=== PATIENT | female | born 1995 ===

== ENCOUNTER 2018-06-03 11:59 | Emergency (ER) | payer OTHER ==
[2018-06-03 12:24] VITALS: BP 120/81; PULSE 91; RESP 18; TEMP 98.5; O2SAT 100
--- NOTE | 2018-06-03 12:58 | ED PDOC ---
HPI: Abdomen Time Seen by Provider: 06/03/18 12:27 Chief Complaint (Nursing): Abdominal Pain Chief Complaint (Provider): abdominal pain and vaginal spotting History Per: Patient History/Exam Limitations: no limitations Onset/Duration Of Symptoms: Days (x2) Current Symptoms Are (Timing): Still Present Location Of Pain/Discomfort: Other (lower) Associated Symptoms: Urinary Symptoms (dysuria and vaginal spotting). denies: Fever, Chills Additional Complaint(s): Marylou Davey is a 22 year old female, with a past medical history of UTIs, who presents to the emergency department complaining of lower crampy abdominal pain and vaginal spotting associated with dysuria onset for x2 days. Patient is approximately x12 weeks . She denies any fever, chills or other medical complaints. PMD: Marysol Hwang Past Medical History Reviewed: Historical Data, Nursing Documentation, Vital Signs Vital Signs: Last Vital Signs Temp 98.5 F 06/03/18 12:20 Pulse 91 H 06/03/18 12:20 Resp 18 06/03/18 12:20 BP 120/81 06/03/18 12:20 Pulse Ox 100 06/03/18 12:20 - Medical History PMH: No Chronic Diseases - Surgical History Surgical History: No Surg Hx - Family History Family History: States: Unknown Family Hx - Home Medications Home Medications: Ambulatory Orders Medication Instructions Recorded Nitrofurantoin Macrocrystals 100 mg PO BID #20 cap 06/03/18 [Macrobid] - Allergies Allergies/Adverse Reactions: Allergies Allergy/AdvReac Type Severity Reaction Status Date / Time No Known Allergies Allergy Verified 06/03/18 12:20 Review of Systems ROS Statement: Except As Marked, All Systems Reviewed And Found Negative Constitutional: Negative for: Fever, Chills Gastrointestinal: Positive for: Abdominal Pain (lower crampy) Genitourinary Female: Positive for: Dysuria, Vaginal Bleeding (spotting) Physical Exam - Reviewed Nursing Documentation Reviewed: Yes Vital Signs Reviewed: Yes - Physical Exam Appears: Positive for: No Acute Distress Head Exam: Positive for: ATRAUMATIC, NORMAL INSPECTION, NORMOCEPHALIC Skin: Positive for: Normal Color, Warm, Dry Eye Exam: Positive for: Normal appearance, EOMI, PERRL Neck: Positive for: Normal, Painless ROM Cardiovascular/Chest: Positive for: Regular Rate, Rhythm. Negative for: Murmur Respiratory: Positive for: Normal Breath Sounds. Negative for: Respiratory Distress Gastrointestinal/Abdominal: Positive for: Soft, Tenderness (mild suprapubic) Back: Positive for: Normal Inspection. Negative for: L CVA Tenderness, R CVA Tenderness, Vertebral Tenderness Extremity: Positive for: Normal ROM (upper and lower extremities). Negative for: Deformity, Swelling Neurologic/Psych: Positive for: Alert, Oriented - Laboratory Results Result Diagrams: 06/03/18 13:00 06/03/18 13:00 - ECG O2 Sat by Pulse Oximetry: 100 (RA) Pulse Ox Interpretation: Normal Medical Decision Making Medical Decision Making: Time: 12:27 Initial Plan: --Type and screen --Beta-HCG Quantitative --CMP --Urine dipstick --CBC w/ differential --Urine culture --OB Transvaginal [US] --Reevaluation --------- Scribe Attestation: Documented by Ney Wong, acting as a scribe for Cliff Garcia MD. Provider Scribe Attestation: All medical record entries made by the Scribe were at my direction and pers onally dictated by me. I have reviewed the chart and agree that the record accurately reflects my personal performance of the history, physical exam, medical decision making, and the department course for this patient. I have also personally directed, reviewed, and agree with the discharge instructions and disposition. Disposition - Clinical Impression Clinical Impression: Abdominal pain during , UTI (urinary tract infection) - Patient ED Disposition Is Patient to be Admitted: No Counseled Patient/Family Regarding: Studies Performed, Diagnosis, Need For Followup, Rx Given - Disposition [facility]errals[facility] Disposition: Routine/Home Disposition Time: 15:58 Condition: FAIR Prescriptions: Nitrofurantoin Macrocrystals [Macrobid] 100 mg PO BID #20 cap Instructions: Urinary Tract Infections in Adults, Threatened Miscarriage Forms: [employer] (Emirati)
[2018-06-03 13:15] LABS: BASO % 0.2 % (0.0-2.0); EOS % 0.4 % (0.0-4.0); HEMOGLOBIN 10.5 g/dL (12.0-16.0); LYMPH % 15.8 % (20.0-40.0); MEAN CELL VOLUME 84.2 fl (81.0-99.0); MEAN CORPUSCULAR HEMOGLOBIN 27.9 pg (27.0-31.0); MEAN CORPUSCULAR HGB CONC 33.2 g/dL (33.0-37.0); MONO # 0.3 K/uL (0.0-0.8); MONO % 5.3 % (0.0-10.0); NEUT % 78.3 % (50.0-75.0); RBC 3.74 Mil/uL (3.80-5.20); RED CELL DISTRIBUTION WIDTH 15.2 % (11.5-14.5); WHITE BLOOD COUNT 6.4 K/uL (4.8-10.8)
[2018-06-03 13:16] LABS: ALB/GLOB RATIO 1.3 (1.0-2.1); ALBUMIN 3.9 g/dL (3.5-5.0); ALT/SGPT 24 U/L (9-52); AST/SGOT 14 U/L (14-36); BLOOD UREA NITROGEN 3 mg/dl (7-17); CALCIUM 9.3 mg/dL (8.4-10.2); GFR NON-AFRICAN AMERICAN > 60
--- NOTE | 2018-06-03 15:23 | US ---
Date of service: 06/03/2018 PROCEDURE: OB Pelvic Ultrasound HISTORY: vag bleed LMP: A central appears reported 02/25/2018 suggesting 12 week 6 day gestation. COMPARISON: None available. FINDINGS: UTERUS: Gestational sac: Single intrauterine gestation with pole identified. Mean sac diameter 7.0 cm. Mean crown-rump length measurement 7.4 cm corresponds to 13 weeks 4 days sonographic age. Anterosuperior developing placenta without abruption or previa appreciable. Heart rate: 157 bpm. age (Ultrasound estimated): 13 weeks 4 days Lizbeth-gestational hemorrhage: None appreciable at this time. Date of delivery (Ultrasound estimated) : 12/05/2018 Uterus measures 11.7 x 10.4 x 8.5 cm. Normal in size and appearance. anatomic survey not obtained at this time due to emergent presentation and early 2nd trimester dates. CERVIX: Measures 3.7 cm. Trace fluid is identified in the endocervical canal. Internal cervical os not grossly dilated. RIGHT OVARY: Not identified. No suspicious right adnexal findings otherwise. LEFT OVARY: Measures 2.4 x 2.6 x 1.6 cm. No solid mass. Normal flow. FREE FLUID: None. OTHER FINDINGS: None. IMPRESSION: A single viable intrauterine gestation is identified in variable lie with an ultrasonic age of 13 weeks 4 days. cardiac activity 157 beats per minute. Anterosuperior developing placenta without abruption or previa appreciated. Trace fluid noted in the endocervical canal with internal cervical os not grossly dilated. Unremarkable left ovary. Right ovary not identified. Consider follow-up full anatomical survey as clinically warranted.
== END 2018-06-03 16:11 | disposition home or self-care (01) ==
LOC: H.ER 11:59
DX: O26.91 Pregnancy related conditions, unspecified, first trimester (principal); R10.2 Pelvic and perineal pain; O23.41 Unspecified infection of urinary tract in pregnancy, first trimester; Z3A.12 12 weeks gestation of pregnancy

== ENCOUNTER 2018-08-20 19:02 | Emergency (ER) | payer OTHER ==
--- NOTE | 2018-08-20 19:52 | OBDCSUM ---
Datetime: 08/20/2018 19:49 Discharged to, Provider: Home Follow up at, Provider: [facility] [place] Disch Instr Activity: Normal activity Disch Instr Diet: Regular Discharge Instructions, Provider: Routine instructions given Follow up in weeks, Provider: 1w Disch Referrals: None Contraception discussed, Prov: Yes Discharge Comment, Provider: spoke to Dr Charles Discharge Diagnosis Prov Other: S/P fall
--- NOTE | 2018-08-20 20:47 | ED PDOC ---
Lower Extremity Pain/Injury Time Seen by Provider: 08/20/18 20:29 Chief Complaint (Nursing): Lower Extremity Problem/Injury Chief Complaint (Provider): Left Hip Pain History Per: Patient History/Exam Limitations: no limitations Onset/Duration Of Symptoms: Hrs (around 184) Current Symptoms Are (Timing): Still Present Additional Complaint(s): 23 year old female 25 weeks presents to the ED for evaluation of left hip pain. Patient reports that around 1845 tonight she was walking in a parking lot to [employer] when she slipped on ice and fell landing on her left hip. She reports localized pain to the area since, but has not taken any medications prior to arrival. Initially, she came to the hospital and was cleared by OB, and is now seeking hip evaluation. Otherwise denies prior hip injury / surgery, head injury, and loss of consciousness. No other complaints. LNMP: March 05, 2018 PMD: was [place], but she moved so no active PMD in area Past Medical History Reviewed: Historical Data, Nursing Documentation, Vital Signs Vital Signs: Last Vital Signs Temp 98.1 F 08/20/18 20:20 Pulse 98 H 08/20/18 20:20 Resp 16 08/20/18 20:20 BP 104/64 08/20/18 20:20 Pulse Ox 98 08/20/18 20:20 - Medical History PMH: No Chronic Diseases - Surgical History Surgical History: Tonsillectomy - Family History Family History: States: Unknown Family Hx - Social History Current smoker - smoking cessation education provided: No Alcohol: None Drugs: Denies - Home Medications Home Medications: Ambulatory Orders Medication Instructions Recorded Nitrofurantoin Macrocrystals 100 mg PO BID #20 cap 06/03/18 [Macrobid] Acetaminophen [Acetaminophen 8 650 mg PO Q8 PRN #21 tablet.er 08/20/18 Hour] - Allergies Allergies/Adverse Reactions: Allergies Allergy/AdvReac Type Severity Reaction Status Date / Time No Known Allergies Allergy Verified 06/03/18 12:20 Review of Systems ROS Statement: Except As Marked, All Systems Reviewed And Found Negative Musculoskeletal: Positive for: Leg Pain (left hip) Neurological: Negative for: Other (loss of consciousness) Physical Exam - Reviewed Nursing Documentation Reviewed: Yes Vital Signs Reviewed: Yes - Physical Exam Comments: GENERAL APPEARANCE: Patient is awake, alert, oriented x 3, in no acute distress. SKIN: Warm, dry; (-) cyanosis. EYES: (-) conjunctival pallor. ENMT: Mucous membranes moist. Airway patent, (-) stridor. NECK: Supple, FROM (-) midline tenderness, (-) stiffness, (-) lymphadenopathy. CHEST AND RESPIRATORY: (-) rales, (-) rhonchi, (-) wheezes; breath sounds equal bilaterally. Respirations nonlabored. HEART AND CARDIOVASCULAR: (-) irregularity ABDOMEN AND GI: Soft with gravid uterus; (-) tenderness; (-) palpable mass (-) pelvic instability BACK: (-) midline tenderness, (-) deformity. LEFT LOWER EXTREMITY: (+) tenderness to lateral left hip and lateral proximal left thigh, (-) edema (-) ecchymosis, (-) erythema, (-) break in skin integrity. Full ROM bilateral hips. Remainder of LLE: nontender with full ROM. Sensation intact throughout. NEURO AND PSYCH: Mental status as above. Gait: limping. Speech: clear. (-) facial asymmetry - ECG O2 Sat by Pulse Oximetry: 98 (RA) Pulse Ox Interpretation: Normal Medical Decision Making Medical Decision Making: Initial Impression: acute leg pain s/p fall, contusion Time: 2029 Initial Plan: --Tylenol 650mg PO --Re-evaluation 2100 On re-evaluation, patient reports improvement of symptoms. On exam, patient remains AAOx3, in no acute distress. Vitals stable. Lab/Diagnostic results d/w the patient in great detail. Diagnosis of acute leg/hip pain, contusion s/p fall on ice d/w the patient. Based on history, exam and diagnostic results, plan will be for outpatient follow up with PMD. Patient instructed to follow-up with pmd / referral provided / the clinic in 1- 2 days without fail. Advised to take medication as prescribed. Return to the emergency room at any time for any new or worsening symptoms. Patient states she fully agrees with and understands discharge instructions. States that she agrees with the plan and disposition. Verbalized and repeated discharge instructions and plan. I have given the patient opportunity to ask any additional questions. Scribe Attestation: Documented by Rhonda Rivera, acting as a scribe for Marium Hunter PA-C. Provider Scribe Attestation: All medical record entries made by the Scribe were at my direction and personally dictated by me. I have reviewed the chart and agree that the record accurately reflects my personal performance of the history, physical exam, medical decision making, and the department course for this patient. I have also personally directed, reviewed, and agree with the discharge instructions and disposition. Disposition - Clinical Impression Clinical Impression: Acute pain of left hip, Contusion of leg, left, Fall from slipping on ice - Patient ED Disposition Is Patient to be Admitted: No Counseled Patient/Family Regarding: Studies Performed, Diagnosis, Need For Follo wup, Rx Given - Disposition Referrals: primary, doctor [Other] Dwaine Burk DO [Primary Care Provider] - Disposition: Routine/Home Disposition Time: 21:00 Condition: STABLE Additional Instructions: The emergency medical care you received today was directed at your acute symptoms. If you were prescribed any medication, please fill it and take as directed. It may take several days for your symptoms to resolve. Return to the Emergency Department if your symptoms worsen, do not improve, or if you have any other problems. Please contact your doctor in 2 days for re-evaluation and follow up / or call one of the physicians/clinics you have been referred to that are listed on the Patient Visit Information form that is included in your discharge packet. Bring any paperwork you were given at discharge with you along with any medications you are taking to your follow up visit. Our treatment cannot replace ongoing medical care by a primary care provider (PCP) outside of the emergency department. Prescriptions: Acetaminophen [Acetaminophen 8 Hour] 650 mg PO Q8 PRN #21 tablet.er PRN Reason: Pain, Moderate (4-7) Instructions: Contusion (DC), Hip Pain Forms: [employer] (Thai) Print Language: FAROESE - POA Present On Arrival: Falls Or Trauma (on ice)
[2018-08-20 21:16] VITALS: BP 110/70; PULSE 70; RESP 18; TEMP 98
[2018-08-23 16:28] VITALS: O2SAT 98
== END 2018-08-20 21:16 | disposition home or self-care (01) ==
LOC: H.ER 19:02 → H.EROB2 19:02 → H.ER 21:16
DX: M25.552 Pain in left hip (principal); S80.12XA Contusion of left lower leg, initial encounter; W00.0XXA Fall on same level due to ice and snow, initial encounter; Y92.481 Parking lot as the place of occurrence of the external cause; Z33.1 Pregnant state, incidental

== ENCOUNTER 2018-10-23 19:29 | Emergency (ER) | payer OTHER ==
[2018-10-23 19:39] VITALS: BMI 27.4
--- NOTE | 2018-10-23 19:41 | OBHP ---
Datetime: 08/20/2018 19:45 IP Adm Impression: , intrauterine ; No Active Labor IP Admit Plan: Discharge home Admit Comment, IP Provider: 22yo IUP ar 24w fell on icy sidewallk - hit left post thigh and erna k. No abd trauma +FM PNC: changing from Dr [place]qu[place] to base on Aug 28 in [place] PMH: denies PSH: denies NKA PSoH; denies smoking ETOH drugs POBGYNH: no STD A: 24w IUP S/P fall PLAN: dishcarge home and follo wup with OB provider in [place]. Copeis of recods given to pt. [place] Extremities - PN: Normal Abdomen - PN: Normal Back - PN: Normal Neurologic - PN: Normal General - PN: Normal IP Hx Assessment: The History has been Reviewed and is Current EGA AdmitDate IP: 25.1 IP Chief Complaint: Trauma/Fall FHR Category Provider Fetus A: Category I
--- NOTE | 2018-10-23 20:13 | OBHP ---
Datetime: 10/23/2018 20:06 IP Adm Impression: , intrauterine ; No Active Labor; Intact Membranes IP Admit Plan: Observation/Evaluation; Discharge home Admit Comment, IP Provider: Patient is a 23-year-old 1 para 0 estimated due date December 10 9 patient presents to labor and delivery complaining of yellow vaginal discharge times 2 days duratio n. Patient also reports diarrhea times 2 days duration. Patient reports good movement no vagi nal bleeding no patient denies any complications during this Past medical history none Past surgical history none No known drug allergies Medications vitamins Social history denies alcohol tobacco use Review of systems patient denies headache chest pain shortness of breath palpitations nausea vomit ing diarrhea vaginal bleeding heat or cold intolerance easy bruisability musculoskeletal or neurologi gabrielle complaints Vital signs stable afebrile Physical exam see notes Intrauterine at 34 weeks Sterile speculum exam normal physiological discharge noted Cervix long closed posterior Reassurance Diarrhea patient advised to increase p.o. liquid intake Patient to follow-up with PMD Pelvic Type - PN: Adequate Extremities - PN: Normal Abdomen - PN: Normal Back - PN: Normal Breast - PN: Not Done Lungs - PN: Normal Heart - PN: Normal Thyroid - PN: Normal Neurologic - PN: Normal HEENT - PN: Normal General - PN: Normal FHR - Baseline A Provider: 150 Gestation - Est Wks by US: 34.0 Pool Provider: Negative EGA AdmitDate IP: 33.1 Vital Signs Provider: Reviewed IP Chief Complaint: Other NICHD Variability Prov Fetus A: Moderate 6-25bpm NICHD Accel Fetus A IP Provider: [id number] FHR Category Provider Fetus A: Category II NICHD Decel Fetus A IP Provider: None Dilatation, Provider: 0 Effacement, Provider: 0 Station, Provider: -2 Genitourinary Exam: Normal DTRs - PN: Normal
[2018-10-24 01:38] VITALS: BP 103/65; PULSE 100; TEMP 98.1; O2SAT 97
== END 2018-10-23 20:30 | disposition home or self-care (01) ==
LOC: H.EROB2 19:29
DX: O26.92 Pregnancy related conditions, unspecified, second trimester (principal); Z04.3 Encounter for examination and observation following other accident; Z3A.25 25 weeks gestation of pregnancy